=== PATIENT | male | born 1945 | race Caucasian/White ===

== ENCOUNTER → 2020-10-10 | Outpatient (CLI) | payer MEDICARE ==
--- NOTE | 2020-10-10 22:03 | NM ---
EXAMINATION TYPE: NM bone 3 phase DATE OF EXAM: 10/10/2020 COMPARISON: NONE HISTORY: Open wound Triple phase bone scintigraphy was performed following the injection of 24.3 mCi Tc 99m MDP. Immedia te images and 4 hours post injection images acquired. FINDINGS: Blood flow: There is some slight increased radiotracer in the region of the lateral right knee on mid to later blood flow images. Blood pool: There is mild increased radiotracer within the bilateral calves (more focal at the level of the inferior right knee Static images: Focal radiotracer accumulation is along the lateral right tibial metaphysis. Some mild uptake is within the distal femurs bilaterally at the knees. IMPRESSION: Increased uptake along the lateral proximal foreleg area suspicious for some mild osteomyelitis along the medial metaphyseal tibia. Correlate with symptoms.
== END | disposition home or self-care (01) ==
LOC: RADNMMAIN 07:04
PROVIDERS: ATTEND Internal Medicine Geriatric Medicine
DX: Z08 Encounter for follow-up examination after completed treatment for malignant neoplasm (principal); R94.8 Abnormal results of function studies of other organs and systems; Z85.828 Personal history of other malignant neoplasm of skin
CPT/HCPCS: 78315; A9503

== ENCOUNTER 2020-10-22 13:07 | Inpatient (IN) | payer MEDICARE ==
[2020-10-22] MEDS ORDERED: VANCOMYCIN IV PER PHARMACY 1 EACH MISC MISCELLANE PRN (14:02)
[2020-10-22] MEDS ORDERED: AMPICILLIN-SULBACTAM 1.5 GM in SODIUM CHLORIDE 0.9% 50 ML IVPB STA (14:02)
[2020-10-22] MEDS ORDERED: VANCOMYCIN 1,500 MG in SODIUM CHLORIDE 0.9% 250 ML IVPB STA (14:06)
[2020-10-22] MEDS ORDERED: NALOXONE 0.4 MG/ML 1 ML VIAL IV PRN (14:06)
--- NOTE | 2020-10-22 14:06 | ED ---
General Adult HPI - General Chief complaint: Extremity Problem,Nontraumatic Stated complaint: rt leg infection Time Seen by Provider: 10/22/20 13:09 Source: patient, family, RN/MD, RN notes reviewed Mode of arrival: ambulatory Limitations: no limitations - History of Present Illness Initial comments: Patient is a pleasant 75-year-old male presenting to the emergency department with concerns with infection to the right leg. Patient did see Dr. Pimentel earlier today and was advised to come to the hospital. Patient has been to the wound center and has been on outpatient antibiotic. 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 Patient is having now redness and increased opening of the skin. Patient only has mild discomfort secondary to chronic loss of sensation in this region. - Related Data Home Medications Medication Instructions Recorded Confirmed Aspirin [Adult Low Dose Aspirin EC] 81 mg PO DAILY 01/10/19 10/22/20 Fluticasone Nasal [place] [Flonase 1 spray NASAL DAILY PRN 01/10/19 10/22/20 Nasal [place]] Saw [place] 160 mg PO DAILY 01/10/19 10/22/20 lisinopriL 20 mg PO DAILY 01/10/19 10/22/20 Cinnamon Bark [Cinnamon] 500 mg PO DAILY 10/22/20 10/22/20 Doxycycline Hyclate 100 mg PO BID 10/22/20 10/22/20 EPINEPHrine (Auto Inject) [Epipen] 0.3 mg IM ONCE PRN 10/22/20 10/22/20 Levothyroxine Sodium [Synthroid] 112 mcg PO DAILY 10/22/20 10/22/20 Pravastatin Sodium [Pravachol] 40 mg PO DAILY 10/22/20 10/22/20 SILVER sulfADIAZINE Cream 1 applic TOPICAL BID 10/22/20 10/22/20 [Silvadene 1% Cream] Sildenafil Citrate [Viagra] 50 mg PO DAILY PRN MDD 2 tabs/month 10/22/20 10/22/20 Allergies Allergy/AdvReac Type Severity Reaction Status Date / Time atorvastatin [From Lipitor] AdvReac Unknown Verified 10/22/20 13:55 bee venom protein (honey bee) AdvReac Unknown Verified 10/22/20 13:55 simvastatin [From Zocor] AdvReac Unknown Verified 10/22/20 13:55 Review of Systems ROS Statement: Those systems with pertinent positive or pertinent negative responses have been documented in the HPI. ROS Other: All systems not noted in ROS Statement are negative. Constitutional: Denies: fever Eyes: Denies: eye pain ENT: Denies: ear pain Respiratory: Denies: cough Cardiovascular: Denies: chest pain Endocrine: Denies: fatigue Gastrointestinal: Denies: abdominal pain Genitourinary: Denies: dysuria Musculoskeletal: Denies: back pain Skin: Reports: as per HPI, rash Neurological: Denies: weakness Past Medical History Past Medical History: Hearing Disorder / Deafness, Hyperlipidemia, Hypertension, Osteoarthritis (OA), Thyroid Disorder Additional Past Medical History / Comment(s): impaired fasting glucose, psoriasis, ED, TIA History of Any Multi-Drug Resistant Organisms: None Reported Past Surgical History: Unable to Obtain Past Anesthesia/Blood Transfusion Reactions: Unable to Obtain Past Psychological History: No Psychological Hx Reported Smoking Status: Never smoker Past Alcohol Use History: Occasional Past Drug Use History: None Reported General Exam Limitations: no limitations General appearance: alert, in no apparent distress Head exam: Present: normocephalic Eye exam: Present: normal appearance Neck exam: Present: normal inspection Respiratory exam: Present: normal lung sounds bilaterally Cardiovascular Exam: Present: regular rate, normal rhythm Expanded Peripheral pulses: 2+: Posterior Tibialis (R), Dorsalis Pedis (R) GI/Abdominal exam: Present: soft. Absent: tenderness Extremities exam: Present: other (Right anterior johnson with previous skin graft. 3 small open areas. Mild erythema. No significant swelling.). Absent: calf tenderness Neurological exam: Present: alert Psychiatric exam: Present: normal affect, normal mood Skin exam: Present: erythema Course Vital Signs 10/22/20 13:11 Temperature 98.0 F Pulse Rate 83 Respiratory 18 Rate Blood Pressure 159/83 O2 Sat by Pulse 98 Oximetry Medical Decision Making - Medical Decision Making Patient and family updated on plan. Case was discussed with Dr. Pimentel who would like his patient admitted with IV Unasyn and vancomycin as well as consults with infectious disease and Dr. Ramos. Disposition Clinical Impression: Cellulitis of right leg Disposition: ADMITTED IP TO THIS HOSP Is patient prescribed a controlled substance at d/c from ED?: No Referrals: Dread Pimentel MD [Primary Care Provider] - 1-2 days Decision Time: 14:06
[2020-10-22] MEDS: SODIUM CHLORIDE 0.9% 1,000 ML IV SCH (14:32)
[2020-10-22 14:44] LABS: Basophils # (A) 0.1 k/uL (0-0.2); Basophils % (A) 1 %; Eosinophils # (A) 0.2 k/uL (0-0.7); Eosinophils % (A) 3 %; HCT 46.8 % (39.0-53.0); Lymphocytes # (A) 1.2 k/uL (1.0-4.8); Lymphocytes % (A) 16 %; MCH 32.7 pg (25.0-35.0); MCHC 34.2 g/dL (31.0-37.0); MCV 95.7 fL (80.0-100.0); Mean Platelet Volume 8.2; Monocytes # (A) 0.5 k/uL (0-1.0); Monocytes % (A) 7 %; Neutrophils # (A) 5.4 k/uL (1.3-7.7); Neutrophils % (A) 71 %; Platelet Count 178 k/uL (150-450); RDW 12.5 % (11.5-15.5); WBC 7.6 k/uL (3.8-10.6)
[2020-10-22 14:52] LABS: INR 0.9 (<1.2); Partial Thromboplastin Time 24.7 sec (22.0-30.0); Prothrombin Time 9.6 sec (9.0-12.0)
[2020-10-22 14:54] LABS: ALT 40 U/L (4-49); AST 35 U/L (17-59); African American GFR (CKD) >90 (>60 ml/min/1.73 sqM); Albumin 4.3 g/dL (3.5-5.0); Alkaline Phosphatase 65 U/L (38-126); Anion Gap 4 mmol/L; Blood Urea Nitrogen 21 mg/dL (9-20); Carbon Dioxide 27 mmol/L (22-30); Chloride 105 mmol/L (98-107); Glucose 125 mg/dL (74-99); Non-African American GFR(CKD) 78 (>60 ml/min/1.73 sqM); Potassium 4.9 mmol/L (3.5-5.1); Sodium 136 mmol/L (137-145); Total Bilirubin 0.4 mg/dL (0.2-1.3); Total Protein 7.6 g/dL (6.3-8.2)
[2020-10-22] MEDS ORDERED: EPINEPHrine 1 MG/ML 1 ML AMP IM PRN (18:52)
[2020-10-22] MEDS ORDERED: FLUTICASONE 50MCG/SPRAY NASAL 16GM NASAL PRN (18:52)
[2020-10-22] MEDS: DOXYCYCLINE 100 MG CAP PO SCH (21:38)
[2020-10-22] MEDS ORDERED: AMPICILLIN-SULBACTAM 1.5 GM in SODIUM CHLORIDE 0.9% 50 ML IVPB SCH (23:00)
[2020-10-22] MEDS: AMPICILLIN-SULBACTAM 1.5 GM in SODIUM CHLORIDE 0.9% 50 ML IVPB SCH (23:25)
--- NOTE | 2020-10-22 23:54 | P.HPIM ---
History of Present Illness H&P Date: 10/22/20 Chief Complaint: Right leg Osteomyelitis and severe cellulitis, hypertension, hyperlipidemia 75-year-old male one of my office patient with altered medical problem was known to have history of right leg bone gross post resection years ago with significant tissue loss require skin graft on the leg which patient has done long time ago with no major complication. About 3 weeks ago patient presented to the office with nonhealing 1 open area on the right leg in the mid chin area close to the skin graft was done for his previously bone growth. Patient was sent to the center and the ulcerated area felt to be severe cellulitis and nonhealing ulcer has been on treatment at the [address] [place] [address] on regular basis. Patient was taking off oral antibiotics recently. Patient presented back to the office today with second area within 1 inch from the previously suspicious area for osteomyelitis the second one came with Probe test involving the bone. Patient is symptomatic having worsening pain and discomfort and irritation and there is a third spot close to the open this time. Patient was sent to demurs department will be hospitalized will be going for bone scan or CAT scan of the leg will be seen orthopedic she is disease and Wound Center continue topical care continue IV antibiotic with at least Vanco along with Unasyn. Will be seen infectious disease as well. Review of Systems CONSTITUTIONAL: Well-developed no acute respiratory distress. EYES: No icterus sclerae, no conjunctivitis. EARS, NOSE, MOUTH, THROAT, and FACE: No sore throat, lymphadenopathy, carotid bruits or deformity. RESPIRATORY: No SOB cough or wheezes. CARDIOVASCULAR: No CP, Palpitation, PND, Orthopnea, or angina. GASTROINTESTINAL: No Abd pain, Nausea or vomiting, no Diarrhea or constipation, No GI Bleed, no distention or masses. GENITOURINARY: Negative for Hematuria or UTI, no kidney stones. INTEGUMENT/BREAST: Negative for any muscular injury with mild osteoarthritis.. Right leg has 3 spot told 1 looks more open than before and involving the bone noted [address] to protect it's an open area there is a 31 has not HEMATOLOGIC/LYMPHATIC: Negative for bleed or purpura. MUSCULOSKELTAL: Negative for Myalgia or arthralgia. NEURLOGICAL: No LOC, Sz or syncope, blurred vision dizziness or abnormality.. BEHAVIORAL/PSYCH: Negative. ENDOCRINE: Negative. Past Medical History Past Medical History: Hearing Disorder / Deafness, Hyperlipidemia, Hypertension, Osteoarthritis (OA), Thyroid Disorder Additional Past Medical History / Comment(s): impaired fasting glucose, psoriasis, ED, TIA History of Any Multi-Drug Resistant Organisms: None Reported Past Surgical History: Unable to Obtain Past Anesthesia/Blood Transfusion Reactions: Unable to Obtain Past Psychological History: No Psychological Hx Reported Smoking Status: Never smoker Past Alcohol Use History: Occasional Past Drug Use History: None Reported Medications and Allergies Home Medications Medication Instructions Recorded Confirmed Type Aspirin [Adult Low Dose Aspirin EC] 81 mg PO DAILY 01/10/19 10/22/20 History Fluticasone Nasal [place] [Flonase 1 spray NASAL DAILY PRN 01/10/19 10/22/20 History Nasal [place]] Saw [place] 160 mg PO DAILY 01/10/19 10/22/20 History lisinopriL 20 mg PO DAILY 01/10/19 10/22/20 History Cinnamon Bark [Cinnamon] 500 mg PO DAILY 10/22/20 10/22/20 History Doxycycline Hyclate 100 mg PO BID 10/22/20 10/22/20 History EPINEPHrine (Auto Inject) [Epipen] 0.3 mg IM ONCE PRN 10/22/20 10/22/20 History Levothyroxine Sodium [Synthroid] 112 mcg PO DAILY 10/22/20 10/22/20 History Pravastatin Sodium [Pravachol] 40 mg PO DAILY 10/22/20 10/22/20 History SILVER sulfADIAZINE Cream 1 applic TOPICAL BID 10/22/20 10/22/20 History [Silvadene 1% Cream] Sildenafil Citrate [Viagra] 50 mg PO DAILY PRN MDD 2 tabs/month 10/22/20 10/22/20 History Allergies Allergy/AdvReac Type Severity Reaction Status Date / Time atorvastatin [From Lipitor] AdvReac Unknown Verified 10/22/20 13:55 bee venom protein (honey bee) AdvReac Unknown Verified 10/22/20 13:55 simvastatin [From Zocor] AdvReac Unknown Verified 10/22/20 13:55 Physical Exam Vitals: Vital Signs Temp Pulse Resp BP Pulse Ox 10/22/20 17:37 97.9 F 85 18 166/90 96 10/22/20 14:30 71 18 159/89 95 10/22/20 13:11 98.0 F 83 18 159/83 98 Intake and Output 10/22/20 10/22/20 10/22/20 06:59 14:59 22:59 Other: Weight 86.636 kg General Appearance: Alert, cooperative, no distress, appears stated age. Neck HEENT: Supple, no lymphadenopathy, no thyroid enlargement, no carotid bruits. Lungs: Clear to auscultation without crackles or wheezes no rhonchi, no deformity. Chest Wall: Chest wall normal expansion with deep inspiration no tenderness and no deformity was found on exam, no costochondral pain or discomfort. Heart: Regular rate and rhythm, S1, S2 normal, no murmur, rub or gallop. Back: Symmetric, no curvature, ROM normal, no CVA tenderness. Abdomen: Soft, non-tender, bowel sounds active all four quadrants, no masses, no organomegaly. Extremities: Extremities normal, atraumatic, no cyanosis or edema. 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 Pulses: 2+ and symmetric. Skin: Skin color, texture, tugor normal, no rashes or lesions. Neurologic: Alert oriented x3 cranial nerves II through XII intact, no motor deficit, no abnormal balance or gait. Results CBC & Chem 7: 10/22/20 14:00 10/22/20 14:00 Labs: Abnormal Lab Results - Last 24 Hours (Table) 10/22/20 Range/Units 14:00 Sodium 136 L (137-145) mmol/L BUN 21 H (9-20) mg/dL Glucose 125 H (74-99) mg/dL Assessment and Plan Assessment: 1 acute osteomyelitis of the right leg with failure to outpatient treatment: Patient bone scan was done recently still seen at the wound center regular basis. Antibiotic was started on vancomycin and Unasyn till seen or so and infectious disease decide on further management. 2 nonhealing ulcer of the right leg: We'll continue to see 1 center continue topical care another CAT scan of the leg will be done and compare with the bone scan [facility] help to make a decision to what level of debridement require are surgery. 3 hypertension: Remain on lisinopril 20 mg a day. 4 hyperlipidemia: Remain on pravastatin 40 mg a day. 5 hypothyroidism: Continue patient on levothyroxine 112 g daily. 6 pain management: Continue patient on hydrocodone as needed basis. 7 DVT prophylaxis: Patient be on heparin 5000 units obtain his twice a day. 8 GI prophylaxis: Continue patient on Pepcid 20 mg daily. CODE STATUS: Full code. Admit patient to the inpatient service for more than 2 night stay.
[2020-10-23] MEDS ORDERED: VANCOMYCIN 1,500 MG in SODIUM CHLORIDE 0.9% 250 ML IVPB SCH (05:00)
[2020-10-23] MEDS: LEVOTHYROXINE 112 MCG TAB PO SCH (05:28)
[2020-10-23] MEDS: AMPICILLIN-SULBACTAM 1.5 GM in SODIUM CHLORIDE 0.9% 50 ML IVPB SCH ×2 (05:29→12:52)
--- NOTE | 2020-10-23 05:39 | CONS ---
CONSULTATION DATE OF SERVICE: 10/22/2020 REASON FOR CONSULTATION: Right lower extremity cellulitis. HISTORY OF PRESENT ILLNESS: The patient is a 75-year-old male with a past medical history significant for sarcoma of right lower extremity, status post resection and a previous graft. The patient did mention that he bumped his right leg a few days ago and has developed a small area of irritation at the upper end of his skin graft site which the patient has been treated locally, however, subsequently developed another area on the lower end of the incision with some drainage and for the last day or 2 noticed to have some surrounding swelling, redness and minimal dull aching pain. The patient denies high- grade fever or chills. With these symptoms, the patient was evaluated by his primary care physician. Patient was advised to go to the hospital for IV antibiotic therapy. On arrival to the ER, the patient was afebrile. The patient did have a normal white count. Kidney function was normal. He has been started on Unasyn and vancomycin. Infectious Disease was consulted for further management of antibiotic therapy. REVIEW OF SYSTEMS: Positive points have been mentioned in HPI. Rest of systems are negative. PAST MEDICAL HISTORY: Hypertension, hyperlipidemia, osteoarthritis, hypothyroidism, sarcoma right leg. PAST SURGICAL HISTORY: Resection of right leg sarcoma and skin graft. SOCIAL HISTORY: No history of smoking. Occasionally drinks. No drug use. FAMILY HISTORY: No pertinent findings noticed. ALLERGIES: Allergies to SIMVASTATIN and ATORVASTATIN. MEDICATIONS: Medications include the patient is currently on Unasyn 3 grams q.8. He is on aspirin, doxycycline, Synthroid, and vancomycin along with Pravachol and IV fluids. PHYSICAL EXAMINATION: On examination, blood pressure is 172/86, pulse 72, temperature 98.1. He is 99% on room air. General description is an elderly male lying in bed in no distress. No tachypnea or accessory muscle of respiration use. HEENT: Examination shows no pallor or scleral icterus. Oral mucous membrane is dry. No pharyngeal erythema or thrush. NECK: Trachea central. No thyromegaly. LUNGS: Unlabored breathing, clear to auscultation anteriorly. No wheeze or crackle. HEART: S1, S2. Regular rate and rhythm. ABDOMEN: Soft, no tenderness. Right lower extremity with small wounds on his graft site one at the upper end and one at the lower end. There was no fluctuation induration or any purulent drainage. NEUROLOGICAL: The patient is awake, alert, oriented x3. Mood and affect normal. LABS: Hemoglobin 16, white count 7.6, BUN of 21, creatinine 0.94. Electrolytes have been normal. Liver enzymes are normal. DIAGNOSTIC IMPRESSION AND PLAN: Patient with right lower extremity cellulitis in this patient who did have a history of sarcoma resection and graft with traumatic wound and surrounding cellulitis, worsening over the last 24 to 48 hours, more likely from a gram-positive skin driss such as strep; clinically doubt a MRSA or a gram-negative infection. PLAN: 1. We will increase Unasyn to 3 grams q.6 hours. Continue doxycycline. Discontinue vancomycin. 2. We will follow on his clinical condition and further adjust medication if needed. Thank you for this consultation. Will follow this patient along with you. MMODL / IJN: [id number] /
[2020-10-23] MEDS: ASPIRIN 81 MG PO SCH (08:20)
[2020-10-23] MEDS: DOXYCYCLINE 100 MG CAP PO SCH ×2 (08:20→19:52)
[2020-10-23] MEDS: lisinopriL 20 MG TAB PO SCH (08:20)
[2020-10-23] MEDS: PRAVASTATIN SODIUM 40 MG TAB PO SCH (08:21)
[2020-10-23] MEDS ORDERED: NON FORMULARY DRUG (Cinnamon Bark [Cinnamon] 500 MG Capsule) PO SCH (09:00)
[2020-10-23 10:15] LABS: African American GFR (CKD) 95.1 (60.0-200.0); Non-African American GFR(CKD) 82.1 (60.0-200.0)
--- NOTE | 2020-10-23 13:52 | P.PN ---
Subjective Progress Note Date: 10/23/20 HISTORY OF PRESENT ILLNESS 75-year-old male one of my office patient with altered medical problem was known to have history of right leg bone gross post resection years ago with sig nificant tissue loss require skin graft on the leg which patient has done long time ago with no major complication. About 3 weeks ago patient presented to the office with nonhealing 1 open area on the right leg in the mid chin area close to the skin graft was done for his previously bone growth. Patient was sent to the [address] [place] [address] and the ulcerated area felt to be severe cellulitis and nonhealing ulcer has been on treatment at the [address] [place] [address] on regular basis. Patient was taking off oral antibiotics recently. Patient presented back to the office today with second area within 1 inch from the previously suspicious area for osteomyelitis the second one came with Probe test involving the bone. Patient is symptomatic having worsening pain and discomfort and irritation and there is a third spot close to the open this time. Patient was sent to demurs department will be hospitalized will be going for bone scan or CAT scan of the leg will be seen orthopedic she is disease and Wound Center continue topical care continue IV antibiotic with at least Vanco along with Unasyn. Will be seen infectious disease as well. 10/23: The patient has been seen by Dr. Carolina and continued on Unasyn, doxycyc line and vancomycin was discontinued. Wound care team consult has been added. According to the Wound Healing Center, osteomyelitis is not suspected based on the recent bone scan and area of uptake not consistent with the area of ulcer. Patient is been afebrile, heart rate 56, blood pressure 156/84, pulse ox 96% on room air. REVIEW OF SYSTEMS CONSTITUTIONAL: Well-developed no acute respiratory distress. No fever. EYES: No icterus sclerae, no conjunctivitis. EARS, NOSE, MOUTH, THROAT, and FACE: No sore throat, lymphadenopathy, carotid bruits or deformity. RESPIRATORY: No SOB cough or wheezes. CARDIOVASCULAR: No CP, Palpitation, PND, Orthopnea, or angina. GASTROINTESTINAL: No Abd pain, Nausea or vomiting, no Diarrhea or constipation, No GI Bleed, no distention or masses. GENITOURINARY: Negative for Hematuria or UTI, no kidney stones. INTEGUMENT/BREAST: Negative for any muscular injury with mild osteoarthritis.. Right leg has 3 spot told 1 looks more open than before and involving the bone noted [address] to protect it's an open area there is a 31 has not HEMATOLOGIC/LYMPHATIC: Negative for bleed or purpura. MUSCULOSKELTAL: Negative for Myalgia or arthralgia. NEURLOGICAL: No LOC, Sz or syncope, blurred vision dizziness or abnormality.. BEHAVIORAL/PSYCH: Negative. ENDOCRINE: Negative. PHYSICAL EXAMINATION General Appearance: Alert, cooperative, no distress, appears stated age. Neck HEENT: Supple, no lymphadenopathy, no thyroid enlargement, no carotid bruits. Lungs: Clear to auscultation without crackles or wheezes no rhonchi, no deformity. Chest Wall: Chest wall normal expansion with deep inspiration no tenderness and no deformity was found on exam, no costochondral pain or discomfort. Heart: Regular rate and rhythm, S1, S2 normal, no murmur, rub or gallop. Back: Symmetric, no curvature, ROM normal, no CVA tenderness. Abdomen: Soft, non-tender, bowel sounds active all four quadrants, no masses, no organomegaly. Extremities: Extremities normal, atraumatic, no cyanosis or edema. 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 Pulses: 2+ and symmetric. Skin: Skin color, texture, tugor normal, no rashes or lesions. Neurologic: Alert oriented x3 cranial nerves II through XII intact, no motor deficit, no abnormal balance or gait. ASSESSMENT AND PLAN 1 right pretibial ulcer under the care of wound healing Center. Osteomyelitis is unlikely according to wound healing Center. Patient has been seen by Dr. Carlos Eduardo cage, continue Unasyn at 3 g every 6 hours, continue doxycycline, discontinue vancomycin. 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 Wound care team consult. 3 hypertension: Remain on lisinopril 20 mg a day. 4 hyperlipidemia: Remain on pravastatin 40 mg a day. 5 hypothyroidism: Continue patient on levothyroxine 112 g daily. 6 pain management: Continue patient on hydrocodone as needed basis. 7 DVT prophylaxis: Patient be on heparin 5000 units obtain his twice a day. 8 GI prophylaxis: Continue patient on Pepcid 20 mg daily. CODE STATUS: Full code. DISCHARGE PLAN TBD. Impression and plan of care have been directed as dictated by the signing physician. Victoria Guo nurse practitioner acting as scribe for signing physician. Objective - Vital Signs Vital signs: Vital Signs Temp 97.8 F 10/23/20 07:58 Pulse 56 L 10/23/20 07:58 Resp 17 10/23/20 07:58 BP 156/84 10/23/20 07:58 Pulse Ox 96 10/23/20 07:58 Intake & Output 10/22/20 10/23/20 10/23/20 18:59 06:59 18:59 Weight 86.636 kg 86.636 kg Other: # Voids 1 - Labs CBC & Chem 7: 10/22/20 14:00 10/23/20 05:16 Labs: Abnormal Lab Results - Last 24 Hours (Table) 10/22/20 Range/Units 14:00 Sodium 136 L (137-145) mmol/L BUN 21 H (9-20) mg/dL Glucose 125 H (74-99) mg/dL
--- NOTE | 2020-10-23 15:07 | P.CONS ---
History of Present Illness - Reason for Consult Consult date: 10/23/20 wound care - History of Present Illness This is a 75-year-old patient known to the wound care center with a nonhealing ulceration to the right anterior lower extremity. 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 He also had radiation to the site. Approximate 6 weeks ago patient had trauma to the lower extremity and was seen at his primary care physician's office. At that time he had bone exposure he was then seen in the wound care center and started on collagen. Bone scan showed possible ostial to the lateral aspect of the right lower extremity that does not correlate to the ulcerations. 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 Review of Systems Review Of Systems: Constitutional: No fever, no chills, no night sweats. No weight change. No weakness, fatigue or lethargy. No daytime sleepiness. Integumentary:reports wounds, no lesions. No rash or pruritus. No unusual bruising. No change in hair or nails. Past Medical History Past Medical History: Hearing Disorder / Deafness, Hyperlipidemia, Hypertension, Osteoarthritis (OA), Thyroid Disorder Additional Past Medical History / Comment(s): impaired fasting glucose, psoriasis, ED, TIA History of Any Multi-Drug Resistant Organisms: None Reported Past Surgical History: Unable to Obtain Past Anesthesia/Blood Transfusion Reactions: Unable to Obtain Past Psychological History: No Psychological Hx Reported Smoking Status: Never smoker Past Alcohol Use History: Occasional Past Drug Use History: None Reported Medications and Allergies Home Medications Medication Instructions Recorded Confirmed Type Aspirin [Adult Low Dose Aspirin EC] 81 mg PO DAILY 01/10/19 10/22/20 History Fluticasone Nasal [place] [Flonase 1 spray NASAL DAILY PRN 01/10/19 10/22/20 History Nasal [place]] Saw [place] 160 mg PO DAILY 01/10/19 10/22/20 History lisinopriL 20 mg PO DAILY 01/10/19 10/22/20 History Cinnamon Bark [Cinnamon] 500 mg PO DAILY 10/22/20 10/22/20 History Doxycycline Hyclate 100 mg PO BID 10/22/20 10/22/20 History EPINEPHrine (Auto Inject) [Epipen] 0.3 mg IM ONCE PRN 10/22/20 10/22/20 History Levothyroxine Sodium [Synthroid] 112 mcg PO DAILY 10/22/20 10/22/20 History Pravastatin Sodium [Pravachol] 40 mg PO DAILY 10/22/20 10/22/20 History SILVER sulfADIAZINE Cream 1 applic TOPICAL BID 10/22/20 10/22/20 History [Silvadene 1% Cream] Sildenafil Citrate [Viagra] 50 mg PO DAILY PRN MDD 2 tabs/month 10/22/2012/11 History Allergies Allergy/AdvReac Type Severity Reaction Status Date / Time atorvastatin [From Lipitor] AdvReac Unknown Verified 10/22/20 13:55 bee venom protein (honey bee) AdvReac Unknown Verified 10/22/20 13:55 simvastatin [From Zocor] AdvReac Unknown Verified 10/22/20 13:55 Physical Exam Vitals: Vital Signs Temp Pulse Pulse Resp BP BP Pulse Ox 10/23/20 07:58 97.8 F 56 L 17 156/84 96 10/23/20 01:40 97.7 F 70 16 169/93 98 10/22/20 21:38 98.1 F 72 18 172/86 99 10/22/20 21:24 16 10/22/20 19:00 98.2 F 71 18 150/86 95 10/22/20 17:37 97.9 F 85 18 166/90 96 Intake and Output 10/23/20 10/23/20 10/23/20 06:59 14:59 22:59 Other: # Voids 1 Original cause of wound was Trauma. The wound is currently classified as a Full Thickness With Exposed Support Structures wound with etiology of To be dete rmined and is located on the Right,Anterior Lower Leg. The wound measures 6.7cm length x 1cm width x 0.2cm depth; 5.262cm^2 area and 1.052cm^3 volume. There is bone exposed. There is no tunneling or undermining noted. There is a small amount of serous drainage noted. The wound margin is flat and intact. There is small (1-33%) red granulation within the wound bed. There is a large (67-100%) amount of necrotic tissue within the wound bed including Adherent Slough. The periwound skin appearance exhibited: Scarring. The periwound skin appearance did not exhibit: Callus, Crepitus, Excoriation, Induration, Rash, Dry/Scaly, Maceration, Atrophie Maria Isabel, Cyanosis, Ecchymosis, Hemosiderin Staining, M ottled, Pallor, Rubor, Erythema. 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 Continue with Santyl, saline moistened gauze, order foam and Dar bandage to secure. Change daily. Patient will continue with weekly wound care appointments next appointment is October 31 at 145. Patient will continue to be worked up for hyperbaric oxygen therapy in the outpatient setting. Thank you for the consultation any questions please contact the wound care center. DNP note has been reviewed and discussed with Dr. Nguyen and the impression and plan of care has been directed as dictated. Time with Patient: Greater than 30
--- NOTE | 2020-10-23 15:19 | P.CNOR ---
History of Present Illness - [facility] Consult date: 10/23/20 Consult reason: other History of present illness: Patient is a 75-year-old male who presented to [facility] yesterday with regards to cellulitis and a wound involving his right lower extremity. 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 He ended up undergoing a skin graft procedure for this. Patient is number had an issue with this up until about a month ago. He states that he was in his barn working when he bumped the leg. He didn't think much of it, he does have limited sensation to the region. When he returned to his house, he noted that he had blood running down the leg. It started as a small ulceration in the skin, this has grown over the last 3 weeks, there is also been a few different ulcerations that have appeared. He's been seeing his internal medicine doctor along with the wound care clinic for follow-up and management. Patient was seen by his internal medicine doctor yesterday in the office, there was concern due to the amount of redness and ulceration in those areas that he reported to the hospital as a direct admit with plan for IV antibiotics and further workup and treatment. Infectious disease has been consult in along with the wound care clinic. Our orthopedic team was also consulted. Patient was evaluated today at bedside, he is resting comfortably. He has minimal discomfort in that region. He denies any fevers or chills at this time. Denies any foot or ankle pain or knee pain on the right side. Size the sarcoma removal and skin graft, he denies any other surgery of the right lower extremity. Review of Systems Constitutional: Reports as per HPI Past Medical History Past Medical History: Hearing Disorder / Deafness, Hyperlipidemia, Hypertension, Osteoarthritis (OA), Thyroid Disorder Additional Past Medical History / Comment(s): impaired fasting glucose, psoriasis, ED, TIA History of Any Multi-Drug Resistant Organisms: None Reported Past Surgical History: Unable to Obtain Past Anesthesia/Blood Transfusion Reactions: Unable to Obtain Past Psychological History: No Psychological Hx Reported Smoking Status: Never smoker Past Alcohol Use History: Occasional Past Drug Use History: None Reported Medications and Allergies Home Medications Medication Instructions Recorded Confirmed Type Aspirin [Adult Low Dose Aspirin EC] 81 mg PO DAILY 01/10/19 10/22/20 History Fluticasone Nasal [place] [Flonase 1 spray NASAL DAILY PRN 01/10/19 10/22/20 History Nasal [place]] Saw [address] 160 mg PO DAILY 01/10/19 10/22/20 History lisinopriL 20 mg PO DAILY 01/10/19 10/22/20 History Cinnamon Bark [Cinnamon] 500 mg PO DAILY 10/22/20 10/22/20 History Doxycycline Hyclate 100 mg PO BID 10/22/20 10/22/20 History EPINEPHrine (Auto Inject) [Epipen] 0.3 mg IM ONCE PRN 10/22/20 10/22/20 History Levothyroxine Sodium [Synthroid] 112 mcg PO DAILY 10/22/20 10/22/20 History Pravastatin Sodium [Pravachol] 40 mg PO DAILY 10/22/20 10/22/20 History SILVER sulfADIAZINE Cream 1 applic TOPICAL BID 10/22/20 10/22/20 History [Silvadene 1% Cream] Sildenafil Citrate [Viagra] 50 mg PO DAILY PRN MDD 2 tabs/month 10/22/20 10/22/20 History Allergies Allergy/AdvReac Type Severity Reaction Status Date / Time atorvastatin [From Lipitor] AdvReac Unknown Verified 10/22/20 13:55 bee venom protein (honey bee) AdvReac Unknown Verified 10/22/20 13:55 simvastatin [From Zocor] AdvReac Unknown Verified 10/22/20 13:55 Physical Examination Right lower extremity: Skin graft is noted over the anterior mid shaft of the tibia. There are 3 notable skin ulcerations, the largest one being more proximal with scab. None of the ulcerations are currently draining. There is necrotic tissue noted in t he larger ulceration, with small amount of bone visualized There is notable erythema surrounding the area of the skin graft. I'm unable to appreciate any fluctuance around the areas of ulceration or the areas of erythema. There are no areas of erythema distal or proximal to the skin graft. There is no effusion present around the knee, there is no tenderness with palpation. He has full range of motion with regards to extension and flexion of both the ankle/foot along with the knee. Logroll maneuver the hip reproduces no pain. He is able to straight leg raise with no difficulty. His calf is soft, there is no tenderness with palpation. Plantar flexion, dorsiflexion, EHL, FHL are intact. Sensory exam to light touch throughout the extremity is intact, he does have numbness throughout the skin graft. Dorsalis pedis pulses 2+. Results - Labs Labs: H & H 10/22/20 Range/Units 14:00 Hgb 16.0 (13.0-17.5) gm/dL Hct 46.8 (39.0-53.0) % Coagulation 10/22/20 Range/Units 14:00 INR 0.9 (<1.2) Result Diagrams: 10/22/20 14:00 10/23/20 05:16 Assessment and Plan Assessment: Right lower extremity cellulitis Right lower extremity nonhealing ulcers Possible osteomyelitis right lower extremity History of sarcoma with surgical excision and skin graft procedure Other medical comorbidities Plan: I was able to review this case with my attending Dr. Mustafa. On physical exam I'm unable to appreciate any areas of fluctuance that represent an abscess in the area of concern, therefore recommend no general orthopedic surgical intervention at this time. After review of both internal medicine and wound cares recommendations, there is concern for osteomyelitis in the region of the nonhealing ulcers. MRI has been scheduled for further evaluation Depending on results of MRI, patient may need extensive surgical debridement with further skin grafting. This would likely require treatment at a tertiary care facility with plastic surgery We'll be available for any further questions regarding this patient Time with Patient: Less than 30
[2020-10-23] MEDS: SODIUM CHLORIDE 0.9% 1,000 ML IV SCH (15:30)
--- NOTE | 2020-10-23 16:33 | PN ---
PROGRESS NOTE DATE OF SERVICE: 10/23/2020 REASON FOR FOLLOWUP: Right lower extremity cellulitis. INTERVAL HISTORY: The patient is currently afebrile. The patient is breathing comfortably. Patient denies having any chest pain. No shortness of breath. no cough. No nausea, no vomiting or pain to the right leg. Overall, her redness is decreased with no drainage. PHYSICAL EXAMINATION: Blood pressure 156/84, pulse of 86, temperature 97.8, he is 96% on room air. General description is an elderly male, lying in bed in no distress. RESPIRATORY SYSTEM: Unlabored breathing, clear to auscultation anteriorly. HEART: S1, S2. Regular rate and rhythm. ABDOMEN: Soft, no tenderness. Right leg wound surrounding swelling, no significant redness or drainage was noticed. LABS: Sedimentation rate of 9, creatinine 0.9. Blood culture negative. DIAGNOSTIC IMPRESSION AND PLAN: Patient with right lower extremity cellulitis in this patient currently responding to the Unasyn, dose to continue. Continue to finish with oral Augmentin and doxycycline and close outpatient followup. MMODL / IJN: [id number] /
[2020-10-23] MEDS: COLLAGENASE 250 UNIT/GM OINTMENT 30 GM TUBE TOPICAL SCH (17:56)
[2020-10-23] MEDS: AMPICILLIN-SULBACTAM 3 GM in SODIUM CHLORIDE 0.9% 100 ML IVPB SCH ×2 (17:56→23:29)
[2020-10-23] MEDS ORDERED: AMPICILLIN-SULBACTAM 3 GM in SODIUM CHLORIDE 0.9% 50 ML IVPB SCH (18:00)
--- NOTE | 2020-10-23 19:28 | MR ---
EXAMINATION TYPE: MR LE non joint RT wo/w con DATE OF EXAM: 10/23/2020 COMPARISON: HISTORY: Open wound mid johnson, hx malignant tumor resection. CONTRAST: Standard multiplanar, multisequence MRI departmental protocol utilizing 7.5 mL intravenous Gadavist g adolinium contrast. On the STIR images and T2 images there is subcutaneous edema around the right lower leg at the mid ti brittney. Edema is more noticeable on the anterior aspect and lateral aspect. I see no bony destructive pr ocess. The tibia and fibula appear intact. There is no evidence of a discrete soft tissue mass. The contrast images show no pathologic enhancement. IMPRESSION: There is subcutaneous edema around the lower leg as above. No discrete soft tissue mass. No bone lesi on identified.
[2020-10-24] MEDS: AMPICILLIN-SULBACTAM 3 GM in SODIUM CHLORIDE 0.9% 100 ML IVPB SCH ×3 (05:13→18:10)
[2020-10-24] MEDS: LEVOTHYROXINE 112 MCG TAB PO SCH (05:14)
[2020-10-24] MEDS: lisinopriL 20 MG TAB PO SCH (08:23)
[2020-10-24] MEDS: ASPIRIN 81 MG PO SCH (08:23)
[2020-10-24] MEDS: PRAVASTATIN SODIUM 40 MG TAB PO SCH (08:23)
[2020-10-24] MEDS: SODIUM CHLORIDE 0.9% 1,000 ML IV SCH (10:33)
[2020-10-24] MEDS: COLLAGENASE 250 UNIT/GM OINTMENT 30 GM TUBE TOPICAL SCH (10:33)
--- NOTE | 2020-10-24 12:08 | P.PN ---
Subjective Progress Note Date: 10/24/20 HISTORY OF PRESENT ILLNESS 75-year-old male one of my office patient with altered medical problem was known to have history of right leg bone gross post resection years ago with sig nificant tissue loss require skin graft on the leg which patient has done long time ago with no major complication. About 3 weeks ago patient presented to the office with nonhealing 1 open area on the right leg in the mid chin area close to the skin graft was done for his previously bone growth. Patient was sent to the [address] [place] [address] and the ulcerated area felt to be severe cellulitis and nonhealing ulcer has been on treatment at the [address] [place] [address] on regular basis. Patient was taking off oral antibiotics recently. Patient presented back to the office today with second area within 1 inch from the previously suspicious area for osteomyelitis the second one came with Probe test involving the bone. Patient is symptomatic having worsening pain and discomfort and irritation and there is a third spot close to the open this time. Patient was sent to [facility] department will be hospitalized will be going for bone scan or CAT scan of the leg will be seen orthopedic she is disease and Wound Center continue topical care continue IV antibiotic with at least Vanco along with Unasyn. Will be seen infectious disease as well. 10/23: The patient has been seen by Dr. Carolina and continued on Unasyn, doxycyc line and vancomycin was discontinued. Wound care team consult has been added. According to the Wound Healing Center, osteomyelitis is not suspected based on the recent bone scan and area of uptake not consistent with the area of ulcer. Patient is been afebrile, heart rate 56, blood pressure 156/84, pulse ox 96% on room air. 10/24: She has been seen by orthopedics. If patient needs extensive surgical debridement and graft this would require care at tertiary care center. MRI of the right lower extremity revealed subcutaneous edema around the lower leg as above. No discrete soft tissue mass. No bone lesion. This is consistent with what the wound healing Center advise from the bone scan previously done. Patient has been afebrile, heart rate 59, blood pressure 150/77, pulse ox 96% on room air. Plan to continue IV antibiotics for 1 more day and discharged home tomorrow. No chills. REVIEW OF SYSTEMS CONSTITUTIONAL: Well-developed no acute respiratory distress. No fever. EYES: No icterus sclerae, no conjunctivitis. EARS, NOSE, MOUTH, THROAT, and FACE: No sore throat, lymphadenopathy, carotid bruits or deformity. RESPIRATORY: No SOB cough or wheezes. CARDIOVASCULAR: No CP, Palpitation, PND, Orthopnea, or angina. GASTROINTESTINAL: No Abd pain, Nausea or vomiting, no Diarrhea or constipation, No GI Bleed, no distention or masses. GENITOURINARY: Negative for Hematuria or UTI, no kidney stones. INTEGUMENT/BREAST: Negative for any muscular injury with mild osteoarthritis.. Right leg has 3 spot told 1 looks more open than before and involving the bone noted [address] to protect it's an open area there is a 31 has not HEMATOLOGIC/LYMPHATIC: Negative for bleed or purpura. MUSCULOSKELTAL: Negative for Myalgia or arthralgia. NEURLOGICAL: No LOC, Sz or syncope, blurred vision dizziness or abnormality.. BEHAVIORAL/PSYCH: Negative. ENDOCRINE: Negative. PHYSICAL EXAMINATION General Appearance: Alert, cooperative, no distress, appears stated age. Patient appears to be in no acute distress. Neck HEENT: Supple, no lymphadenopathy, no thyroid enlargement, no carotid bruits. Lungs: Clear to auscultation without crackles or wheezes no rhonchi, no deformity. Chest Wall: Chest wall normal expansion with deep inspiration no tenderness and no deformity was found on exam, no costochondral pain or discomfort. Heart: Regular rate and rhythm, S1, S2 normal, no murmur, rub or gallop. Back: Symmetric, no curvature, ROM normal, no CVA tenderness. Abdomen: Soft, non-tender, bowel sounds active all four quadrants, no masses, no organomegaly. Extremities: Extremities normal, atraumatic, no cyanosis or edema. 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 Pulses: 2+ and symmetric. Skin: Skin color, texture, tugor normal, no rashes or lesions. Neurologic: Alert oriented x3 cranial nerves II through XII intact, no motor deficit, no abnormal balance or gait. ASSESSMENT AND PLAN 1 right pretibial ulcer under the care of wound healing Center. Osteomyelitis is not suspected according to wound healing Center. MRI consistent with this. Patient has been seen by Dr. Caroilna, continue Unasyn at 3 g every 6 hours, continue doxycycline, discontinue vancomycin. 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 Wound care team consult. 3 hypertension: Remain on lisinopril 20 mg a day. 4 hyperlipidemia: Remain on pravastatin 40 mg a day. 5 hypothyroidism: Continue patient on levothyroxine 112 g daily. 6 pain management: Continue patient on hydrocodone as needed basis. 7 DVT prophylaxis: Patient be on heparin 5000 units obtain his twice a day. 8 GI prophylaxis: Continue patient on Pepcid 20 mg daily. CODE STATUS: Full code. DISCHARGE PLAN Home on Wednesday. Impression and plan of care have been directed as dictated by the signing physician. Victoria Guo nurse practitioner acting as scribe for signing physician. Objective - Vital Signs Vital signs: Vital Signs Temp 97.6 F 10/24/20 08:00 Pulse 59 L 10/24/20 08:00 Resp 17 10/24/20 08:00 BP 150/77 10/24/20 08:00 Pulse Ox 96 10/24/20 08:00 Intake & Output 10/23/20 10/24/20 10/24/20 18:59 06:59 18:59 Other: Voiding Method Toilet # Voids 3 2 - Labs CBC & Chem 7: 10/22/20 14:00 10/23/20 05:16 Labs: Microbiology - Last 24 Hours (Table) 10/22/20 12:49 Blood Culture - Preliminary Blood No Growth after 24 hours
[2020-10-24 15:17] LABS: African American GFR (CKD) 74.7 (60.0-200.0); Non-African American GFR(CKD) 64.4 (60.0-200.0)
[2020-10-24 20:18] VITALS: RESP 18
--- NOTE | 2020-10-24 23:35 | PN ---
PROGRESS NOTE DATE OF SERVICE: 10/24/2020 REASON FOR FOLLOWUP: Right lower extremity cellulitis. INTERVAL HISTORY: The patient is currently afebrile. The patient is breathing comfortably. Did mention overall pain, swelling and redness of the right leg has improved. No purulent drainage. No chest pain, shortness of breath or cough. PHYSICAL EXAMINATION: Blood pressure 152/83 with a pulse of 73, temperature is 97.9. He is 96% on room air. General description is an elderly male lying in bed in no distress. RESPIRATORY SYSTEM: Unlabored breathing, clear to auscultation anteriorly. HEART: S1, S2. Regular rate and rhythm. ABDOMEN: Soft, no tenderness. Right leg is currently dressed up. No obvious drainage on the dressing. LABS: Sed rate of 9. DIAGNOSTIC IMPRESSION AND PLAN: Patient with acute right lower extremity cellulitis in this patient with overall improvement with Unasyn. The patient did have a MRI of the leg with no evidence of any mass or bone lesion. The patient to continue with Unasyn to finish therapy with oral Augmentin and close outpatient followup. MMODL / IJN: [id number] /
[2020-10-25] MEDS: AMPICILLIN-SULBACTAM 3 GM in SODIUM CHLORIDE 0.9% 100 ML IVPB SCH ×2 (00:19→05:13)
[2020-10-25] MEDS: LEVOTHYROXINE 112 MCG TAB PO SCH (05:13)
[2020-10-25 07:24] VITALS: BP 153/82; PULSE 75; TEMP 98.2
[2020-10-25 08:04] LABS: HGB 15.7 gm/dL (13.0-17.5); MCH 33.3 pg (25.0-35.0); MCHC 34.8 g/dL (31.0-37.0); MCV 95.5 fL (80.0-100.0); Mean Platelet Volume 7.9; Platelet Count 194 k/uL (150-450); RBC 4.71 m/uL (4.30-5.90); RDW 12.6 % (11.5-15.5); WBC 8.2 k/uL (3.8-10.6)
--- NOTE | 2020-10-25 08:15 | P.DS ---
Providers Date of admission: 10/22/20 14:06 Expected date of discharge: 10/25/20 Attending physician: Dread Pimentel Consults: 10/22/20 14:07 Consult Physician Urgent Consulting Provider: Jakub Carolina Consult Reason/Comments: cellulitis Do you want consulting provider notified?: Yes 10/23/20 13:23 Consult Physician Routine Consulting Provider: Fred Mustafa Consult Reason/Comments: right johnson cellulitis/wound Do you want consulting provider notified?: Yes Primary care physician: [facility] Course: HISTORY OF PRESENT ILLNESS 75-year-old male one of my office patient with altered medical problem was known to have history of right leg bone gross post resection years ago with significant tissue loss require skin graft on the leg which patient has done long time ago with no major complication. About 3 weeks ago patient presented to the office with nonhealing 1 open area on the right leg in the mid chin area close to the skin graft was done for his previously bone growth. Patient was sent to the [address] [place] [address] and the ulcerated area felt to be severe cellulitis and nonhealing ulcer has been on treatment at the [address] [place] [address] on regular basis. Patient was taking off oral antibiotics recently. Patient presented back to the office today with second area within 1 inch from the previously suspicious area for osteomyelitis the second one came with Probe test involving the bone. Patient is symptomatic having worsening pain and discomfort and irritation and there is a third spot close to the open this time. Patient was sent to demurs department will be hospitalized will be going for bone scan or CAT scan of the leg will be seen orthopedic she is disease and Wound Center continue topical care continue IV antibiotic with at least Vanco along with Unasyn. Will be seen infectious disease as well. 10/23: The patient has been seen by Dr. Carolina and continued on Unasyn, doxycycline and vancomycin was discontinued. Wound care team consult has been added. According to the [facility]aling [facility], osteomyelitis is not suspected based on the recent bone scan and area of uptake not consistent with the area of ulcer. Patient is been afebrile, heart rate 56, blood pressure 156/84, pulse ox 96% on room air. 10/24: She has been seen by orthopedics. If patient needs extensive surgical debridement and graft this would require care at tertiary care center. MRI of the right lower extremity revealed subcutaneous edema around the lower leg as above. No discrete soft tissue mass. No bone lesion. This is consistent with what the wound healing Center advise from the bone scan previously done. Patient has been afebrile, heart rate 59, blood pressure 150/77, pulse ox 96% on room air. Plan to continue IV antibiotics for 1 more day and discharged home tomorrow. No chills. 10/25: Patient is found sitting in chair and fully dressed for discharge. He has been afebrile, heart rate 75, blood pressure 153/82, pulse ox 96% on room air. Repeat blood work reveals normal CBC. Electrolytes normal, creatinine 1.2. Blood sugar 194. Patient will be discharged home today in stable condition. ASSESSMENT AND PLAN 1 right pretibial ulcer under the care of wound healing Center. 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 3 hypertension 4 hyperlipidemia 5 hypothyroidism 6 pain management DISCHARGE PLAN Home Impression and plan of care have been directed as dictated by the signing physician. Victoria Guo nurse practitioner acting as scribe for signing physician. Patient Condition at Discharge: Good Plan - Discharge Summary Discharge Rx Participant: Yes New Discharge Prescriptions: New Doxycycline Hyclate 100 mg PO BID #20 tab Collagenase [Santyl] 1 applic TOPICAL Q24H applic Continue Saw [place] 160 mg PO DAILY lisinopriL 20 mg PO DAILY Fluticasone Nasal Hemet [Flonase Nasal Hemet] 1 spray NASAL DAILY PRN PRN Reason: Allergy Symptoms Aspirin [Adult Low Dose Aspirin EC] 81 mg PO DAILY SILVER sulfADIAZINE Cream [Silvadene 1% Cream] 1 applic TOPICAL BID Doxycycline Hyclate 100 mg PO BID Pravastatin Sodium [Pravachol] 40 mg PO DAILY Levothyroxine Sodium [Synthroid] 112 mcg PO DAILY Sildenafil Citrate [Viagra] 50 mg PO DAILY PRN MDD 2 tabs/month PRN Reason: e.d. EPINEPHrine (Auto Inject) [Epipen] 0.3 mg IM ONCE PRN PRN Reason: Anaphylaxis Cinnamon Bark [Cinnamon] 500 mg PO DAILY Discharge Medication List Aspirin [Adult Low Dose Aspirin EC] 81 mg PO DAILY 01/10/19 [History] Fluticasone Nasal [place]et [Flonase Nasal Hemet] 1 spray NASAL DAILY PRN 01/10/19 [History] Saw [place] 160 mg PO DAILY 01/10/19 [History] lisinopriL 20 mg PO DAILY 01/10/19 [History] Cinnamon Bark [Cinnamon] 500 mg PO DAILY 10/22/20 [History] Doxycycline Hyclate 100 mg PO BID 10/22/20 [History] EPINEPHrine (Auto Inject) [Epipen] 0.3 mg IM ONCE PRN 10/22/20 [History] Levothyroxine Sodium [Synthroid] 112 mcg PO DAILY 10/22/20 [History] Pravastatin Sodium [Pravachol] 40 mg PO DAILY 10/22/20 [History] SILVER sulfADIAZINE Cream [Silvadene 1% Cream] 1 applic TOPICAL BID 10/22/20 [History] Sildenafil Citrate [Viagra] 50 mg PO DAILY PRN MDD 2 tabs/month 10/22/20 [History] Collagenase [Santyl] 1 applic TOPICAL Q24H applic 10/25/20 [Rx] Doxycycline Hyclate 100 mg PO BID #20 tab 10/25/20 [Rx] Follow up Appointment(s)/Referral(s): Dread Pimentel MD [Primary Care Provider] - 10/30/20 10:00 am [facility]Center [NON-STAFF] - 10/31/20 1:45 pm Patient Instructions/Handouts: Cellulitis (DC) Activity/Diet/Wound Care/Special Instructions: Dressings to be changed as per the Wound Center - last changed 10/25/2020 Discharge Disposition: HOME SELF-CARE
[2020-10-25] MEDS: lisinopriL 20 MG TAB PO SCH (08:27)
[2020-10-25] MEDS: ASPIRIN 81 MG PO SCH (08:27)
[2020-10-25] MEDS: PRAVASTATIN SODIUM 40 MG TAB PO SCH (08:28)
[2020-10-25 11:41] LABS: African American GFR (CKD) 67.2 (60.0-200.0); Anion Gap 12.7 mmol/L (4.00-12.00); BUN/Creat Ratio 17.5 Ratio (12.00-20.00); Calcium 9.1 mg/dL (8.7-10.3); Carbon Dioxide 23.3 mmol/L (21.6-31.8); Potassium 4.1 mmol/L (3.5-5.5)
== END 2020-10-25 10:28 | disposition home or self-care (01) | DRG 603 ==
LOC: EC 13:07 → 4SSUR 14:06
PROVIDERS: ADMIT Internal Medicine Geriatric Medicine; ATTEND Internal Medicine Geriatric Medicine
DX: L03.115 Cellulitis of right lower limb (principal); L97.919 Non-pressure chronic ulcer of unspecified part of right lower leg with unspecified severity; L59.8 Other specified disorders of the skin and subcutaneous tissue related to radiation; E03.9 Hypothyroidism, unspecified; H91.90 Unspecified hearing loss, unspecified ear; E78.5 Hyperlipidemia, unspecified; I10 Essential (primary) hypertension; M19.90 Unspecified osteoarthritis, unspecified site; L40.9 Psoriasis, unspecified; Z79.82 Long term (current) use of aspirin; Z79.890 Hormone replacement therapy; Z79.899 Other long term (current) drug therapy; Z92.3 Personal history of irradiation; Z85.831 Personal history of malignant neoplasm of soft tissue; Z86.73 Personal history of transient ischemic attack (TIA), and cerebral infarction without residual deficits; Z88.8 Allergy status to other drugs, medicaments and biological substances; Z91.030 Bee allergy status; Y84.2 Radiological procedure and radiotherapy as the cause of abnormal reaction of the patient, or of later complication, without mention of misadventure at the time of the procedure
CPT/HCPCS: 80048; 80053; 82565; 83605; 85025; 85027; 85610; 85652; 85730; 86140; 87040; 96365; 96366; 96367; 99284

== ENCOUNTER → 2022-01-08 | Outpatient (CLI) | payer MEDICARE ==
--- NOTE | 2022-01-09 11:57 | ECHOF ---
Referral Reason:I35.0 NONRHEUMATIC AORTIC (VALVE) STENOSIS MEASUREMENTS -------- HEIGHT: 172.7 cm WEIGHT: 86.2 kg BP: IVSd: 1.5 cm (0.6 - 1.1) LVIDd: 4.0 cm (3.9 - 5.3) LVPWd: 1.4 cm (0.6 - 1.1) IVSs: 2.0 cm LVIDs: 2.8 cm LVPWs: 1.5 cm LAESV Index (A-L): 17.78 ml/m Ao Diam: 2.7 cm (2.0 - 3.7) AV Cusp: 1.2 cm (1.5 - 2.6) LA Diam: 3.7 cm (2.7 - 3.8) MV E Ross: 0.84 m/s MV DecT: 160 ms MV A Ross: 0.85 m/s MV E/A Ratio: 0.99 AV maxP.96 mmHg AV meanP.04 mmHg RAP: 5.00 mmHg RVSP: 24.09 mmHg FINDINGS -------- Sinus rhythm. This was a technically adequate study. The left ventricular size is normal. There is moderate concentric left ventricular hypertrophy. O verall left ventricular systolic function is normal with, an EF between 55 - 60 %. The diastolic fi lling pattern is normal for the age of the patient 10.75. The right ventricle is normal in size. Normal LA size by volume 22+/-6 ml/m2. The right atrial size is normal. Interatrial and interventricular septum intact. There is moderate aortic valve sclerosis. There is mild aortic regurgitation. There is mild aorti c stenosis present. The maximum velocity across the aortic valve is 2.96m/s. Peak/mean gradient a cross the Aortic Valve is 34.96mmHg / 20.04mmHg. Mild mitral annular calcification present. Mild mitral regurgitation is present. The tricuspid valve appears structurally normal. Mild tricuspid regurgitation present. Right vent ricular systolic pressure is normal at < 35 mmHg. The right ventricular systolic pressure, as measu red by Doppler, is 24.09mmHg. There is no pulmonic regurgitation present. The aortic root size is normal. IVC Not well visulized. There is no pericardial effusion. CONCLUSIONS -------- 1. There is moderate concentric left ventricular hypertrophy. 2. Overall left ventricular systolic function is normal with, an EF between 55 - 60 %. 3. There is moderate aortic valve sclerosis. 4. There is mild aortic regurgitation. 5. There is mild aortic stenosis present. 6. The maximum velocity across the aortic valve is 2.96m/s. 7. Peak/mean gradient across the Aortic Valve is 34.96mmHg / 20.04mmHg. 8. Mild mitral regurgitation is present. 9. Mild tricuspid regurgitation present. HAND I BLOCKER: Thao Lujan RDCS
== END | disposition home or self-care (01) ==
LOC: RADECHMAIN 11:34
PROVIDERS: ATTEND Internal Medicine Geriatric Medicine
DX: I08.3 Combined rheumatic disorders of mitral, aortic and tricuspid valves (principal)
CPT/HCPCS: 93306